=== PATIENT | male | born 1950 | race Caucasian/White ===

== ENCOUNTER 2019-01-07 09:55 | Day surgery (SDC) | payer OTHER ==
--- NOTE | 2019-01-05 18:23 | EKG ---
Test Date: 2019-01-05 Test Time: 16:07:40 Buoy Tender: CASE MEASUREMENT RESULTS: Intervals: Rate: 61 MS: 114 QRSD: 122 QT: 466 QTc: 469 [place]: P: 52 MS: 114 QRS: 27 T: 43 INTERPRETIVE STATEMENTS: Normal sinus rhythm Right bundle branch block Abnormal ECG No previous ECG available for comparison Electronically Signed On 01-05-19 18:22:42 CDT by Huber Plasencia
[2019-01-07] MEDS ORDERED: Ringers Lactate 1,000 ML IV ONE (10:24)
[2019-01-07] MEDS ORDERED: MINERAL OIL, LITE 10 ML VIAL ONE (10:54)
[2019-01-07] MEDS ORDERED: BUPIVACA 0.5%/EPI 0.0005%/PF 10 ML VIAL ONE (10:54)
[2019-01-07] MEDS ORDERED: LIDOCAINE 1% W/EPI 1:100,000 MDV 50 ML VIAL ONE (10:55)
[2019-01-07] MEDS ORDERED: PROPOFOL 200 MG/20 ML VIAL IV ONE (11:00)
[2019-01-07] MEDS ORDERED: FENTANYL CITR 100 MCG/2 ML ONE ×2 (11:01→12:08)
[2019-01-07] MEDS ORDERED: MIDAZOLAM HCL 2 MG/2 ML INJ ONE (11:01)
[2019-01-07] MEDS ORDERED: LIDOCAINE 1% MPF 2 ML AMPULE ONE (11:02)
[2019-01-07] MEDS ORDERED: EPHEDRINE SULF 50 MG/ML VIAL ONE (12:23)
[2019-01-07] MEDS ORDERED: HYDROMORPHONE HCL 1 MG/ML INJ ONE (13:46)
--- NOTE | 2019-01-08 01:32 | OP ---
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 Procedure: 1.Wide local excision of scalp lesion, total diameter 4.4 cm x 4.1 cm. 2.Split-thickness skin graft from the right thigh to right scalp. 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 The biopsy site and residual areas of pigmented skin lesion were n oted to measure approximately 2.5 cm in maximal diameter. Description Of Procedure: The patient was brought to the operating room. He was placed under genera l anesthesia via laryngeal mask airway. The right scalp and right thigh were cleaned with alcohol an d injected with 0.5% Marcaine with epi to aid in postoperative pain control. A total of 10 mL were u sed between these sites. The scalp and thigh were then prepped with Betadine and draped in a sterile fashion. The prior biopsy site was noted to be well healed. There were, however, residual pigmente d areas. A rough outline of the original biopsy site and contiguous pigmented the areas were outline d. A 10-mm margin was then designed around the lesion. A scalpel was used to incise full-thickness through the skin and into the subcutaneous tissue and a Bovie electrocautery was used to elevate the skin and the tissue from the underlying aponeurotic tissue of the scalp. A suture was placed at 12 o 'clock to indicate the superior most aspect of the lesion. Of note, on a normal skin, there is a sma ll approximately 1-2 mm red vascular-appearing lesion adjacent to the 12 o'clock margin, which acts a s a landmark for any need for future margin resection or evaluation. The specimen was sent for [facility] pathology due to prior diagnosis of melanoma and difficulty in margin assessment on frozen secti on of the lesion. Hemostasis was ensured using cauterization at the wound edges. The underlying sca lp tissue was then undermined several centimeters in order to partially close the wound to a smaller size. Prior to closure, the total diameter of the defect was 41 x 44 mm. A Aisha dermatome was use d to take a skin graft of 25/1000th of an inch thickness from the right thigh. The donor site was dr essed with a small piece of Xeroform and wrapped in Kerlix gauze. The scalp wound was then contracte d by placement of 0 Vicryl deep sutures to bring the edges of the wound from close to 4.5 cm to appro ximately 3 cm at its widest portion. A small Burow's triangle was removed on the anterior and qualification engineer ior aspect of the wound to improve closure in the areas. The skin graft was then secured now with a fusiform effect of 3 x approximately 5 cm. The skin graft was secured using interrupted 3-0 silk sut ures. The skin graft was then secured with a running 5-0 fast-absorbing gut suture. The areas where Burow's triangles were removed were likewise closed with a 5-0 fast-absorbing gut. A Xeroform bolst er was then applied at the skin graft site and secured using the 3-0 silk sutures. The scalp was the n clean and dried and the patient was returned to care of Anesthesia for awakening, extubation in the operating room, which proceeded without difficulty. Complications: None. Disposition: The patient will follow up with Dr. Gilmore in 10 days for removal of the bolster. MICHAEL/AIDEN Voice ID: [id number] Report ID: [id number]
== END 2019-01-07 14:45 | disposition home or self-care (01) ==
LOC: OR 09:55
PROVIDERS: ATTEND Otolaryngology
PROC: 0HR0X74 Replacement of Scalp Skin with Autologous Tissue Substitute, Partial Thickness, External Approach (ICD-10-PCS; 2019-01-07)
PROC: 0HBHXZZ Excision of Right Upper Leg Skin, External Approach (ICD-10-PCS; 2019-01-07)
PROC: 0JB00ZZ Excision of Scalp Subcutaneous Tissue and Fascia, Open Approach (ICD-10-PCS; principal; 2019-01-07 12:30)
DX: C43.4 Malignant melanoma of scalp and neck (principal); I10 Essential (primary) hypertension; Z79.899 Other long term (current) drug therapy
CPT/HCPCS: 11626; 15120; 93005; 88305; J2704; J2250; J3010 ×2; J2001; J1170

== ENCOUNTER → 2024-01-22 | Day surgery (SDC) | payer OTHER ==
[2024-01-20 10:50] LABS: Absolute Basophils 0.1 K/uL (0-0.5); Absolute Eosinophils 0.3 K/uL (0-0.5); Absolute Lymphocytes (CBC) 1.6 K/uL (0.7-4.9); Absolute Monocytes 0.6 K/uL (0.1-1.3); Absolute Neutrophil 4.6 K/uL (1.8-8.0); Basophils % 0.8 % (0-1.3); Eosinophils % 4.4 % (0-4.4); Hematocrit 44.2 % (39.6-49.0); Hemoglobin 15.1 g/dL (13.6-17.9); Lymphocytes % 22.6 % (15.3-44.8); MCH 30.3 pg (27.0-35.0); MCHC 34.2 g/dL (32.0-36.0); MCV 88.7 fL (80-100); Monocytes % 8.8 % (3.3-12.3); Neutrophils % 63.4 % (41.7-73.7); Nucleated Red Blood Cells % 0.1 % (0-0); Platelets 169 thou/uL (152-406); RBC Red Blood Cell Count 4.98 M/uL (4.33-5.43); Red Cell Distribution Width 13.2 % (12.1-15.2)
[~2024-01-22] MED LIST: FENTANYL CITR 100 MCG/2 ML ONE; LIDOCAINE 2% MPF 5 ML VIAL ONE; ONDANSETRON 4 MG/2 ML VIAL ONE; ROCURONIUM 50 MG/5 ML VIAL IV ONE; propofoL 200 MG/20 ML VIAL IV ONE
[2024-01-22] MEDS: Ringers Lactate 1,000 ML IV ONE ×2 (10:19→15:39)
[2024-01-22] MEDS: LIDOCAINE HCL/EPINEPHRINE 20 ML MDV ONE (12:52)
[2024-01-22] MEDS: MEPERIDINE HCL 25 MG/ML SYR ONE (15:25)
[2024-01-22] MEDS: LABETALOL 20 MG/4ML SYRINGE IV ONE (15:40)
--- NOTE | 2024-01-22 15:43 | P.OP ---
Telesales Manager: NONE,NONE Preoperative diagnosis: Basal cell carcinoma scalp Postoperative diagnosis: Same Primary procedure: Wide local excision 7 cm x 5 cm Secondary procedure: Skin graft substitute Anesthesia: General Estimated blood loss: 10 mL Specimen: A: scalp, FS. B: new 6-9-12 margin, FS. C: New deep, Permanent only Findings: Basal cell carcinoma with peripheral margins negative Operative Technique: Patient was brought to the operating room and placed under general anesthesia via LMA. The head of bed was turned approximately 45 degrees for better exposure of the right scalp. The scalp demonstrated a well healed remote skin graft on the right midportion of the scalp near the hairline. Anterior and medial to this area was a scaled and ulcerated and scarred area with previous biopsy positive for basal cell carcinoma. A gross 5 mm margin was designed around the clinically apparent lesion. A 15 blade scalpel was used to incise through the epidermis and dermis circumferentially around the lesion. A suture was placed at the anteriormost portion of the lesion and the adjacent skin to orient, marked 12:00. The Bovie electrocautery was then used to incise through the subcutaneous tissue and the lesion was elevated from the loose areolar tissue. Areas of bleeding were controlled using Bovie electrocautery. Near the 1:00 area a area of bleeding was noted, clamped and tied with silk suture. The specimen was then completely removed as specimen A and sent to pathology for frozen section analysis to confirm the margins. The pathologist confirmed the diagnosis of basal cell carcinoma and noted that the en face peripheral margins were positive from 6-9-12 o'clock and that the senior human resources representative sections of the deep margin were close but not touching. The Bovie electrocautery was then used to excise a new margin starting at 6:00 rotating around to 9:00 and ending at 12:00. A new suture was placed at the 12:00 end. Bovie electrocautery was used excise through the subcutaneous tissue. Multiple areas of bleeding were encountered, clamped and tied with silk suture. The specimen was then sent to pathology as specimen B for frozen section analysis to confirm the status of the margins. The deep margin of loose areolar tissue was then harvested using a combination of needlepoint Bovie electrocautery and iris scissors taking care to preserve the underlying periosteum. The true margin was marked with ink and sent to pathology as specimen C, new deep margin for permanent section only. The pathologist confirmed the new peripheral margins were negative and plan for closure was undertaken. The surgical defect now measured 7 cm in an anterior to posterior direction and 5 cm from right to left. The surgical defect encompassed the full-thickness of the skin including the epidermis, dermis, subcutaneous tissue and loose areolar tissue with preservation of the periosteum. A TheraSkin graft was thawed and prepared according to silk finisher's instructions and just fit the defect. The corners of the graft were trimmed to accommodate the oval defect and secured in an 8 point fashion using silk suture. A Xeroform and gauze bolster was formed and secured to the surgical site. Additional ties were applied to the anterior and posterior ends to secure the bolster firmly. The skin was cleaned and dried and the patient was returned to care of anesthesia for awakening and transportation to the recovery room in stable condition. The patient will follow-up with Dr. Gilmore's office in 10 days for removal of the bolster and evaluation of healing. Complications: None Implants: None Fluids & blood products: See anesthesia record Transferred to: Recovery Room (None) Condition: Good
[2024-01-22] MEDS: TRAMADOL HCL 50 MG TAB ONE (16:18)
--- NOTE | 2024-01-22 16:58 | EKG ---
Test Date: 2024-01-20 Test Time: 09:59:59 Special Technical Operations Officer: JAMES MEASUREMENT RESULTS: Intervals: Rate: 60 OR: 114 QRSD: 112 QT: 470 QTc: 470 [place]: P: 64 OR: 114 QRS: 51 T: 68 INTERPRETIVE STATEMENTS: Normal sinus rhythm Incomplete right bundle branch block Borderline ECG Compared to ECG 01/05/2019 16:07:40 Incomplete right bundle-branch block now present Right bundle-branch block no longer present Electronically Signed On 01-22-24 16:50:40 CDT by Fili Gutierrez
[2024-01-22 17:19] VITALS: BP 167/89; TEMP 96.5; O2SAT 96
== END ==
LOC: OR 09:59
PROVIDERS: ATTEND Otolaryngology
PROC: 0JB70ZZ Excision of Back Subcutaneous Tissue and Fascia, Open Approach (ICD-10-PCS; principal; 2024-01-22 11:00)
DX: C44.41 Basal cell carcinoma of skin of scalp and neck (principal)
CPT/HCPCS: 93005; 85025; 80048; 36415; 88331; 88332; 88305; 11626; 15275; 15276; J2704 ×2; J2001 ×2; J3010; J2175; J2405; J7120 ×2